=== PATIENT | female | born 1960 | race Caucasian/White ===

== ENCOUNTER 2022-12-01 17:18 | Emergency (ER) | payer BC ==
[~2022-12-01] VITALS: Ht 157.5 cm; Wt 71.2 kg
[~2022-12-01 17:18] MED LIST: CALC1TAB30 PO; CARI350T27 PO; CEPH500C2 PO; HYDR-3974 PO; IBUP-1955 PO
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
--- NOTE | 2022-12-01 17:45 | NUR ---
DR HOLDEN AT BED SIDE
--- NOTE | 2022-12-01 18:05 | NUR ---
PATIENT REFUSED PAIN MEDICATION AT THIS TIME
--- NOTE | 2022-12-01 18:23 | NUR ---
PATIENT GOING TO RADIOLOGY FOR IMAGING
--- NOTE | 2022-12-01 19:13 | NUR ---
PATIENT HANDED OVER TO CHEMA LAINEZ MONICA
[2022-12-01] MEDS ORDERED: ALPR0.5T PO (20:05)
[2022-12-01 20:29] VITALS: BP 113/60; TEMP 98.5; O2SAT 97
--- NOTE | 2022-12-01 20:29 | NUR ---
Patient discharged to home in stable condition. Written and verbal after care instructions given. Patient verbalizes understanding of instruction.
== END 2022-12-01 20:30 | disposition home or self-care (01) ==
LOC: ER 17:21
DX: S13.8XXA Sprain of joints and ligaments of other parts of neck, initial encounter (principal); S40.011A Contusion of right shoulder, initial encounter; S80.02XA Contusion of left knee, initial encounter; Z79.899 Other long term (current) drug therapy; V89.2XXA Person injured in unspecified motor-vehicle accident, traffic, initial encounter; Y93.89 Activity, other specified; Y92.89 Other specified places as the place of occurrence of the external cause; Y99.8 Other external cause status
CPT/HCPCS: 72125-TC; 73030-TC; 73564-TC